=== PATIENT | male | born 1965 | race African-American/Black ===

== ENCOUNTER 2017-02-04 11:07 | Emergency (ER) | payer OTHER ==
[~2017-02-04] VITALS: Ht 182.9 cm; Wt 97.5 kg
[2017-02-04] MEDS ORDERED: NORVASC5 MG PO (11:08)
[2017-02-04] MEDS ORDERED: PLAVIX 300 MG300 M1 PO (11:08)
[2017-02-04] MEDS ORDERED: LISINOPRIL10 MG PO (11:08)
[2017-02-04] MEDS ORDERED: PLAVIX 75 MG TA75 M1 PO (11:08)
[2017-02-04] MEDS ORDERED: LASIX 20 MG TAB20 MG PO (11:09)
[2017-02-04] MEDS ORDERED: ASPIR 8181 MG PO (11:09)
[2017-02-04 11:38] LABS: ABSOLUTE NEUTROPHILS 7.4 thou/uL (1.4-8.2); BASOPHILS 0.8 % (0.0-2.0); EOSINOPHILS 1.1 % (0.0-3.0); HEMATOCRIT 51.4 % (42.0-52.0); HEMOGLOBIN 17.1 gm/dL (14.0-18.0); LYMPHOCYTES 25.1 % (24.0-44.0); MCH 27.4 pg (26.0-34.0); MCHC 33.2 g/dL (28.0-37.0); MCV 82.4 fL (80.0-100.0); MONOCYTES 11.5 % (1.0-8.0); PLATELET COUNT 305 thou/uL (150-400); POLYS 61.5 % (36.0-66.0); RBC 6.23 mil/uL (4.50-6.00); RDW 17.2 % (10.5-14.5)
[2017-02-04 11:40] LABS: MANUAL DIFF NO
[2017-02-04 12:45] LABS: CALCIUM 8.7 mg/dL (8.5-10.1)
[2017-02-04 13:27] VITALS: BP 159/86
== END 2017-02-04 13:34 | disposition home or self-care (01) ==
LOC: ER 11:07
PROVIDERS: Nurse Practitioner Family
DX: R51 Headache (principal); I11.0 Hypertensive heart disease with heart failure; F12.10 Cannabis abuse, uncomplicated; Z95.5 Presence of coronary angioplasty implant and graft

== ENCOUNTER 2017-09-26 19:25 | Emergency (ER) | payer OTHER ==
[~2017-09-26] VITALS: Ht 182.9 cm; Wt 106.6 kg
[~2017-09-26 19:25] MED LIST: ASPIR 8181 MG PO; FLEXERIL PO; LASIX 20 MG TAB20 MG PO; LISINOPRIL10 MG PO; NAPROSYN500 MG PO; NORCO 5-325 TA1 EACH PO; NORVASC5 MG PO; PLAVIX 300 MG300 M1 PO; PLAVIX 75 MG TA75 M1 PO
[2017-09-26] MEDS ORDERED: LIPITOR 20 MG T20 M1 PO (20:01)
[2017-09-26] MEDS ORDERED: ERYTHROMYCIN E3.5 G2 OPHTHALMIC (20:04)
== END 2017-09-26 20:18 | disposition home or self-care (01) ==
LOC: ER 19:25
DX: H01.004 Unspecified blepharitis left upper eyelid (principal); I11.0 Hypertensive heart disease with heart failure; I50.9 Heart failure, unspecified; Z95.5 Presence of coronary angioplasty implant and graft